=== PATIENT | male | born 1975 | race Caucasian/White ===

== ENCOUNTER 2017-04-24 09:38 | Emergency (ER) | payer BC, OTHER ==
[2017-04-24 10:02] VITALS: BP 121/83
[2017-04-24] MEDS ORDERED: Tetan/Diph/Pertus SYR(Tdap)* 0.5 ML SYR(BOOSTRIX) use SYR IM ONE (10:54)
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
[2017-04-24 16:18] LABS: Manual Entry Verification MD; Rapid HIV INT CONT QC Line Present; Rapid HIV Kit Lot# H041001
== END 2017-04-24 11:37 | disposition home or self-care (01) ==
LOC: UCEAST 09:38
DX: S60.410A Abrasion of right index finger, initial encounter (principal); W46.0XXA Contact with hypodermic needle, initial encounter; Y93.H2 Activity, gardening and landscaping; Y92.89 Other specified places as the place of occurrence of the external cause; Y99.2 Volunteer activity; Z23 Encounter for immunization; Z11.4 Encounter for screening for human immunodeficiency virus [HIV]; Z87.891 Personal history of nicotine dependence
CPT/HCPCS: 36415; 86703; 86706; 86803; 87340; 90471; 90715; 99211; G0463